=== PATIENT | female | born 1965 | race Caucasian/White ===

== ENCOUNTER 2018-01-24 12:24 | Outpatient (REF) | payer BC, SELFPAY ==
--- NOTE | 2018-01-24 11:30 | PAPFT_PTH ---
PATIENT: Sean Cervantes LOC: [facility] U#:[id number] AGE/SX: 52/F ROOM: RE01/24/[address]: LUISITO Burgos : 1965 BED: DIS: 01/24/2018 SPEC #: [id number] RECD: 01/24/18 13:03 STATUS: ABHISHEK REKenny #: [id number] ANABELL: 01/24/18 11:[address]: Angle Triplett DEPT: [facility] Cytology RECD BY: Chhaya Ledezma ENTERED: 01/24/18 13:04 SP TYPE: PAPFT OTHR DR: Tram Simental Tissues: 1 - CX/ENDOCX FOR PAP SMEARS Procedures: PAP THIN PREP/[facility] Screening HPV DNA PROBE Comments: [id number]
== END 2018-01-24 12:44 ==
LOC: LBN 12:24
PROVIDERS: Visit Provider Nurse Practitioner Family
DX: Z12.4 Encounter for screening for malignant neoplasm of cervix (principal); Z11.51 Encounter for screening for human papillomavirus (HPV)
CPT/HCPCS: 88142; 87624

== ENCOUNTER 2019-11-28 03:24 | Outpatient (CLI) | payer OTHER, SELFPAY ==
[2019-11-28 12:05] LABS: Calculated LDL 116 mg/dL (<100); Cholesterol 186 mg/dL (<200); Glucose 87 mg/dL (74-106); HDL Cholesterol 60 mg/dL (40-60); Triglyceride 54 mg/dL (<150)
== END 2019-11-28 03:44 ==
PROVIDERS: PCP Nurse Practitioner Family; Visit Provider Nurse Practitioner Family
DX: Z13.220 Encounter for screening for lipoid disorders (principal); Z13.1 Encounter for screening for diabetes mellitus
CPT/HCPCS: 36415; 80061; 82947

== ENCOUNTER 2021-04-11 00:45 | Outpatient (CLI) | payer OTHER, SELFPAY ==
--- NOTE | 2021-04-11 15:30 | DI.MAMMO_ITS ---
Exam(s) MAMMO SCREENING EXAM: MAMMO SCREENING CLINICAL HISTORY: screening TECHNIQUE: Bilateral full field digital CC and MLO mammographic images were obtained with 3D tomosyn thesis and utilizing computer aided detection (CAD). COMPARISON: None. FINDINGS: Masses/Architectural Distortion: None seen. Microcalcifications: No suspicious pleomorphic-type are seen. Skin Thickening/Nipple Retraction: None. IMPRESSION: 1. No significant interval change with no specific features of malignancy noted. 2. Unless there is more urgent need, screening mammography is recommended, as per [employer] [place] [employer] guidelines. BI-RADS Category 1 - Negative Breast Density - Category B - Scattered areas of fibroglandular density Breast density category C or D implies that the patient has dense breast tissue. Dense breast tissue is very common and is not abnormal but dense breast tissue can make it harder to find cancer on a ma mmogram. Also, dense breast tissue may increase their breast cancer risk. This information about the result of the mammogram report was provided to the patient to raise their awareness. Use this report when you speak with the patient about their risks for breast cancer, which includes their family hist ory. At that time, you may recommend for more screening tests (Ultrasound or MRI) as they might be us eful based on their risk. A negative radiographic report should not delay biopsy if a dominant or clinically suspicious mass is present. Up to ten percent of cancers are not identified on mammography. A negative report may reinforce clinical impression. Adenosis and dense breasts may obscure an underlying neoplasm. False positive reports average 6 to 10%. Patient will receive a letter notifying them of these results.
== END 2021-04-11 01:05 ==
PROVIDERS: PCP Nurse Practitioner Family; Visit Provider Obstetrics & Gynecology
DX: Z12.31 Encounter for screening mammogram for malignant neoplasm of breast (principal)
CPT/HCPCS: 77063; 77067